=== PATIENT | male | born 1990 | race Caucasian/White ===

== ENCOUNTER 2017-11-06 11:46 | Emergency (ER) | payer SELFPAY ==
[2017-11-06] MEDS ORDERED: predniSONE 20 MG Tab PO ONE (12:29)
[2017-11-06] MEDS ORDERED: Doxycycline 100 MG Cap PO ONE (12:29)
[2017-11-06] MEDS ORDERED: Triamcinolone Acetonide 0.5% Oint 15 GM Tube TOP ONE (12:31)
--- NOTE | 2017-11-06 12:35 | EDM.PDOC ---
ED HPI GENERAL MEDICAL PROBLEM - General Chief Complaint: Skin Complaint Stated Complaint: POSS RASH Time Seen by Provider: 11/06/17 12:10 Source of Information: Reports: Patient History Limitations: Reports: No Limitations - History of Present Illness INITIAL COMMENTS - FREE TEXT/NARRATIVE: Patient is a 27-year-old male who presents to the ED complaining of rash to his arms, chest, abdomen, and behind his knees. Patient states the rash started a few weeks along the anterior aspect of his arm pits. States he itches the rash while asleep and the rash has extended to the areas as listed above. He does have a history of eczema and his skin is quite sensitive. States with onset he has not been utilizing any scented lotions or soaps while bathing. There has been no new products that may contributing to this that may have been applied to his skin or hair. Nor has the patient had any new foods. He states this does happen on intermittent basis during the winter months that requires oral prednisone. He has been applying eucerin to the affected areas with minimal relief. He does have a history of MRSA but notes there is no abscesses that are draining at this point. The itching has been so bad that it has caused some clear drainage from the rash where there is cracks present. Denies any fever/ chills, sore throat, lesions to his mouth, lesions to his hands, and or feet. There's been no recent antibiotic use or changes his medications. He is on levothyroxine for hypothyroidism. Generalized Pain Score (Numeric/FACES): 7 - Related Data Allergies Allergy/AdvReac Type Severity Reaction Status Date / Time amoxicillin Allergy Cannot Verified 11/06/17 11:55 Remember Home Meds: Home Meds Betamethasone Valerate 45 gm TP BID #1 oint...g. 11/06/17 [Rx] Doxycycline [Vibramycin] 100 mg PO Q12HR #14 cap 11/06/17 [Rx] Levothyroxine 125 mcg PO ACBREAKFAST 11/06/17 [History] Prednisone [IJD: predniSONE] 40 mg PO ASDIRECTED #15 tab 11/06/17 [Rx] Past Medical History Psychiatric History: Reports: Anxiety Endocrine/Metabolic History: Reports: Hypothyroidism Social & Family History - Tobacco Use Smoking Status *Q: Current Every Day Smoker Years of Tobacco use: 8 Packs/Tins Daily: 0.5 - Caffeine Use Caffeine Use: Reports: None - Recreational Drug Use Recreational Drug Use: Yes Drug Use in Last 12 Months: Yes Recreational Drug Type: Reports: Marijuana/Hashish ED ROS GENERAL - Review of Systems Review Of Systems: ROS reveals no pertinent complaints other than HPI. ED EXAM, SKIN/RASH Exam: See Below Exam Limited By: No Limitations General Appearance: Alert, WD/WN, No Apparent Distress Ears: Hearing Grossly Normal Nose: Normal Inspection Throat/Mouth: Normal Inspection, Normal Oropharynx, Normal Voice, No Airway Compromise Head: Atraumatic, Normocephalic Neck: Supple, Non-Tender, Full Range of Motion Respiratory/Chest: No Respiratory Distress, Lungs Clear, Normal Breath Sounds, No Accessory Muscle Use, Chest Non-Tender Cardiovascular: Normal Peripheral Pulses, Regular Rate, Rhythm, No Murmur Peripheral Pulses: 2+: Radial (L) Neurological: Alert, Oriented, CN II-XII Intact, Normal Cognition, No Motor/ Sensory Deficits Psychiatric: Normal Affect, Normal Mood Location, Skin: Neck, Chest, Abdomen, Upper Extremity, Right, Upper Extremity, Left, Lower Extremity, Right (posterior knee), Lower Extremity, Left (posterior knee) Characteristics: Erythematous, Other (dry and cracking with clear drainage from cracked areas. increased warmth noted. ) Associated features: Warmth, Tenderness, Inflammation, Weeping, Rough Course - Vital Signs Last Recorded V/S: Last Vital Signs Temp 97.1 F 11/06/17 12:00 Pulse 113 H 11/06/17 12:00 Resp 18 11/06/17 12:00 BP 139/102 H 11/06/17 12:00 Pulse Ox 98 11/06/17 12:00 - Orders/Labs/Meds Meds: Medications Discontinued Medications Generic Name Dose Route Start Last Admin Trade Name Freq PRN Reason Stop Dose Admin Doxycycline Hyclate 200 mg 11/06/17 12:29 11/06/17 12:42 Vibramycin PO 11/06/17 12:30 200 mg ONETIME ONE Administration Prednisone 40 mg 11/06/17 12:29 11/06/17 12:42 Prednisone PO 11/06/17 12:30 40 mg WITHBREAKFAST ONE Administration Triamcinolone Acetonide 1 gm 11/06/17 12:31 11/06/17 12:40 Triamcinolone Acetonide 0.5% Oint TOP 11/06/17 12:32 Not Given ONETIME ONE - Re-Assessments/Exams Free Text/Narrative Re-Assessment/Exam: Order prednisone 40 mg by mouth and also doxycycline 200 mg by mouth. We'll discharge patient home with instructions and prescription for doxycycline, tapering dose of prednisone, and prescription for betamethasone. I did have Dr. Echeverria evaluate the patient as well and he agrees with diagnosis and plan. Departure - Departure Time of Disposition: 12:39 Disposition: Home, Self-Care 01 Condition: Good Clinical Impression: Eczema Qualifiers: Eczema type: unspecified Qualified Code(s): L30.9 - Dermatitis, unspecified - Discharge Information Prescriptions: Doxycycline [Vibramycin] 100 mg PO Q12HR #14 cap Betamethasone Valerate 45 gm TP BID #1 oint...g. Prednisone [IJD: predniSONE] 40 mg PO ASDIRECTED #15 tab Instructions: Eczema Referrals: PCP,None [Primary Care Provider] - Forms: ED Department Discharge Additional Instructions: Take the prednisone as prescribed 2 tabs every day for the next 5 days then one tab every day for 5 days. Apply betamethasone ointment to the body twice a day until rash improves then once a day at bedtime. Take doxycycline 1 tab twice a day for 7 days. Refrain from scented lotions, soaps, shampoos,conditioners, , or detergents. Follow-up with your primary care provider at conclusion of therapy to ensure improvement. You may want to speak with a manager consumer insights for additional treatments. Suggest heavy coat of aquaphor applied to his body twice a day during the winter months due to the increased dryness of your skin. This will only exacerbate your condition. Return to the ED if you develop any new or worsening symptoms. Do not itch the rash.
== END 2017-11-06 13:00 | disposition home or self-care (01) ==
LOC: JD.ED 11:46
DX: L30.9 Dermatitis, unspecified (principal); F17.210 Nicotine dependence, cigarettes, uncomplicated; Z88.1 Allergy status to other antibiotic agents
CPT/HCPCS: 99283; A9270